=== PATIENT | male | born 1950 | race Caucasian/White ===

== ENCOUNTER 2017-10-06 08:28 | Outpatient (CLI) | payer MEDICARE, OTHER ==
[2017-10-06 09:04] LABS: CREATININE 0.7 mg/dL (0.6-1.2)
[2017-10-06] MEDS ORDERED: IOPAMIDOL-300 100 ML VIAL ONE (09:04)
--- NOTE | 2017-10-06 10:28 | CT Report ---
CT CHEST WITH CONTRAST: 10/06/2017 CLINICAL INDICATION: Chronic cough. TECHNIQUE: Axial CT images of the chest were obtained with 80 mL Isovue 300 intravenously. COMPARISON: No previous exam is available for comparison. FINDINGS: The heart and great vessels are unremarkable. No hilar or mediastinal lymphadenopathy is present. The lungs are clear. No effusion or pneumothorax is present. Limited evaluation of upper abdominal structures demonstrates normal adrenal glands. Osseous structures demonstrate degenerative changes. IMPRESSION: NORMAL CT OF THE CHEST WITH CONTRAST. CT DOSE REDUCTION STATEMENT In accordance with CT protocol optimization, one or more of the following dose reduction techniques were utilized for this exam: automated exposure control, adjustment of mA and/or KV based on patient size, or use of iterative reconstructive technique. TD: 10/06/2017 10:26
[2017-10-06] MEDS ORDERED: IOPAMIDOL-300 100 ML VIAL IVP ONE (10:39)
== END 2017-10-06 08:29 | disposition home or self-care (01) ==
LOC: LAB 08:28
PROVIDERS: ATTEND Specialist
DX: R05 Cough (principal)
CPT/HCPCS: 36415; 71260; 82565; Q9967